=== PATIENT | female | born 1930 | race Caucasian/White ===

== ENCOUNTER 2018-04-21 09:16 | Inpatient (IN) ==
[2018-04-21] MEDS ORDERED: Naloxone 0.4 MG/ML INJ IVP PRN ×2 (11:16→14:35)
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
[2018-04-21] MEDS ORDERED: Acetaminophen 325 MG TABLET PO PRN (14:35)
[2018-04-21] MEDS: sulfaSALAzine 500 MG TABLET PO SCH (18:56)
[2018-04-22] MEDS: sulfaSALAzine 500 MG TABLET PO SCH (08:39)
[2018-04-22 11:05] VITALS: BP 127/76
--- NOTE | 2018-04-22 13:56 | Internal Med Progress Note ---
Date of Encounter: 04/22/18 Time of Encounter: 13:56 - Time Spent With Patient Total time spent is greater than 50% in coordination of care (as documented) at patient's floor/unit and/or counseling patient: - Constitutional Vitals: Temp Pulse Resp BP Pulse Ox 98.2 F 65 17 127/76 96 04/22/18 11:04 04/22/18 11:04 04/22/18 11:04 04/22/18 11:04 04/22/18 11:04 Consult Discharge Plan - Plan Referrals: Lindsey Laura MD [Primary Care Provider] -
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
[2018-04-22] MEDS ORDERED: Cefdinir 300 MG CAPSULE PO ONE (14:33)
[2018-04-22] MEDS ORDERED: NON-FORMULARY MEDICATION 1 EACH EACH (Alendronate Sodium [Alendronate Sodium] 70 MG) PO SCH (16:15)
--- NOTE | 2018-04-23 08:38 | Electrocardiograph Report ---
[address] [place], [place] [address] Test Date: 2018-04-21 Pat Name: Norma Hanley Department: 109 Room: 3B32 Gender: F Sheet [place] [facility] [place] 1930 Requested By: David Villafuerte Order Number: [id number] Reading MD: Chance Goodman Measurements Intervals [place] Rate: 63 P: 32 NV: 149 QRS: 21 QRSD: 96 T: 35 QT: 431 QTc: 438 Interpretive Statements SINUS RHYTHM Electronically Signed On 04-23-2018 8:36:40 EDT by Chance Goodman
== END 2018-04-22 17:43 | disposition home or self-care (01) | DRG 917 ==
LOC: ICNU → 3BNU 14:33
PROVIDERS: ADMIT Internal Medicine Hospice and Palliative Medicine; ATTEND Student in an Organized Health Care Education/Training Program

== ENCOUNTER 2019-11-22 22:11 | Observation (INO) ==
[2019-11-22 22:48] LABS: Basophils # 0.1 K/mcL (0.0-0.2); Basophils % 0.8 %; Eosinophils % 0.3 %; Hematocrit 49.8 % (35.3-44.9); Hemoglobin 16.2 g/dL (11.5-15.4); Immature Granulocytes % 0.4 % (0-4); Lymphocytes # 1.1 K/mcL (0.6-4.6); Mean Corpuscular HGB Conc 32.5 g/dL (31.6-35.5); Mean Corpuscular Hemoglobin 27.7 pg (28.0-33.3); Mean Corpuscular Volume 85.1 fL (83.0-100.0); Monocytes # 0.5 K/mcL (0.0-1.3); Monocytes % 5.9 %; Neutrophils # 6.3 K/mcL (1.6-8.9); Platelet Count 218 K/mcL (140-400); Red Blood Count 5.85 M/mcL (3.82-4.97); Red Cell Distribution Width 22.1 % (11.5-14.5); Segmented Neutrophils % 78.6 %
[2019-11-22] MEDS ORDERED: *HR* LORazepam 2 MG/ML VIAL IVP ONE (22:48)
[2019-11-22] MEDS ORDERED: 0.9 % Sodium Chloride 1,000 ML IVC ONE (22:48)
[2019-11-22] MEDS ORDERED: Isovue-370 500 ML BOTTLE IVP ONE ×2 (22:48→22:59)
[2019-11-22 22:56] LABS: INR 2.8; Prothrombin Time 31.7 Seconds (9.4-12.1)
[2019-11-22 22:58] LABS: Activated Partial Thrombo Time 59.7 Seconds (26.0-36.0)
[2019-11-22 23:11] LABS: BUN/Creatinine Ratio 15 (6-26); Blood Urea Nitrogen 9 mg/dL (8-23); Calcium 10.3 mg/dL (8.6-10.3); Carbon Dioxide 23 mEq/L (23-29); Chloride 104 mEq/L (98-107); Glucose 118 mg/dL (70-105); Osmolality,Calculated 286 (280-300); Potassium 3.5 mEq/L (3.5-5.1); Sodium 138 mEq/L (136-145); eGFR For African Americans > 60 (> 60); eGFR For Non-African Americans > 60 (> 60)
[2019-11-22 23:14] LABS: Troponin I < 0.03 ng/mL (< 0.04)
[2019-11-23 00:03] LABS: Bilirubin,Urine Negative (Negative); Blood,Urine Negative (Negative); Clarity,Urine Clear (Clear); Color,Urine Yellow (Yellow); Glucose,Urine (UA) Normal (Normal); Ketones,Urine Negative (Negative); Leukocyte Esterase,Urine Small (Negative); Nitrite,Urine Positive (Negative); PH,Urine 7.5 pH Units (5.0-8.0); Protein,Urine Negative (Neg-Trace); Specific Gravity,Urine 1.008 (1.010-1.025); Urobilinogen,Urine Normal (Normal)
[2019-11-23 00:05] LABS: Bacteria,Urine Many per hpf (None-Few); Hyaline Casts,Urine None Seen per lpf (None-Few); RBC,Urine 0-3 per hpf (0-3); Squamous Epithelial Cell,Urine Few per lpf (None-Few)
[2019-11-23] MEDS ORDERED: Sulfamethoxazole/Trimeth DS 1 EACH TABLET PO ONE (00:38)
[2019-11-23] MEDS ORDERED: Aspirin 325 MG TABLET PO ONE ×2 (00:38→01:09)
[2019-11-23 01:06] LABS: Thyroid Stimulating Hormone 5.844 mcIU/mL (0.340-5.600)
[2019-11-23] MEDS ORDERED: Naloxone 0.4 MG/ML INJ IVP PRN (01:47)
[2019-11-23 05:39] LABS: Basophils % 0.5 %; Eosinophils % 0.5 %; Hematocrit 38.7 % (35.3-44.9); Immature Granulocytes % 0.3 % (0-4); Lymphocytes # 0.9 K/mcL (0.6-4.6); Lymphocytes % 16.4 %; Mean Corpuscular Hemoglobin 27.5 pg (28.0-33.3); Mean Corpuscular Volume 88.8 fL (83.0-100.0); Mean Platelet Volume 10.2 fL (9.4-12.4); Monocytes # 0.3 K/mcL (0.0-1.3); Monocytes % 5.2 %; Neutrophils # 4.4 K/mcL (1.6-8.9); Platelet Count 152 K/mcL (140-400); Red Blood Count 4.36 M/mcL (3.82-4.97); Red Cell Distribution Width 21.6 % (11.5-14.5); Segmented Neutrophils % 77.1 %; White Blood Count 5.7 K/mcL (4.3-11.1)
[2019-11-23 05:55] LABS: BUN/Creatinine Ratio 14 (6-26); Blood Urea Nitrogen 8 mg/dL (8-23); Calcium 8.6 mg/dL (8.6-10.3); Carbon Dioxide 24 mEq/L (23-29); Chloride 107 mEq/L (98-107); Glucose 117 mg/dL (70-105); Osmolality,Calculated 289 (280-300); Potassium 3.8 mEq/L (3.5-5.1); Sodium 140 mEq/L (136-145); eGFR For African Americans > 60 (> 60); eGFR For Non-African Americans > 60 (> 60)
[2019-11-23] MEDS ORDERED: Sulfamethoxazole/Trimeth DS 1 EACH TABLET PO SCH (09:00)
[2019-11-23] MEDS: amLODIPine 5 MG TABLET PO SCH (10:39)
[2019-11-23] MEDS: Aspirin Enteric Coated 81 MG Tablet PO SCH (10:39)
[2019-11-23] MEDS: *HR* Rivaroxaban 10 MG TABLET PO SCH (10:39)
[2019-11-23] MEDS: Lactobacillus 1 EACH CAP.SPRINK PO SCH (14:00)
[2019-11-24 04:35] LABS: Basophils # 0.1 K/mcL (0.0-0.2); Basophils % 1.2 %; Eosinophils % 0.6 %; Immature Granulocytes % 0.4 % (0-4); Lymphocytes # 1.1 K/mcL (0.6-4.6); Lymphocytes % 21.5 %; Mean Corpuscular HGB Conc 31.7 g/dL (31.6-35.5); Mean Corpuscular Hemoglobin 27.5 pg (28.0-33.3); Mean Corpuscular Volume 86.9 fL (83.0-100.0); Mean Platelet Volume 10.8 fL (9.4-12.4); Monocytes # 0.4 K/mcL (0.0-1.3); Monocytes % 7.2 %; Neutrophils # 3.4 K/mcL (1.6-8.9); Platelet Count 167 K/mcL (140-400); Red Blood Count 4.72 M/mcL (3.82-4.97); Red Cell Distribution Width 21.5 % (11.5-14.5); Segmented Neutrophils % 69.1 %
[2019-11-24 04:55] LABS: BUN/Creatinine Ratio 15 (6-26); Blood Urea Nitrogen 12 mg/dL (8-23); Calcium 8.9 mg/dL (8.6-10.3); Carbon Dioxide 23 mEq/L (23-29); Chloride 106 mEq/L (98-107); Glucose 102 mg/dL (70-105); Osmolality,Calculated 290 (280-300); Potassium 3.9 mEq/L (3.5-5.1); Sodium 140 mEq/L (136-145); eGFR For African Americans > 60 (> 60); eGFR For Non-African Americans > 60 (> 60)
[2019-11-24 06:36] VITALS: BP 119/65
[2019-11-24] MEDS: Aspirin Enteric Coated 81 MG Tablet PO SCH (08:47)
[2019-11-24] MEDS: *HR* Rivaroxaban 10 MG TABLET PO SCH (08:47)
[2019-11-24] MEDS: Lactobacillus 1 EACH CAP.SPRINK PO SCH (08:47)
[2019-11-24] MEDS: amLODIPine 5 MG TABLET PO SCH (08:48)
[2019-11-24 14:10] LABS: Triiodothyronine (T3) Free 3.19 pg/mL (2.50-3.90)
== END 2019-11-24 18:10 | disposition home or self-care (01) ==
LOC: EMEROOARM 22:11 → 3BNU 22:11 → SUATTDRO 11-23 01:23 → 3BNU 11-23 02:20
PROVIDERS: ADMIT Internal Medicine; ATTEND Internal Medicine